=== PATIENT | male | born 1970 | race Caucasian/White ===

== ENCOUNTER 2017-06-27 06:13 | Day surgery (SDC) | payer OTHER ==
--- NOTE | 2017-06-22 16:03 | HP ---
CC: Dr. Robinson Torres * PREOPERATIVE HISTORY AND PHYSICAL: DATE OF PREOPERATIVE HISTORY AND PHYSICAL EXAMINATION: 06/22/17 DATE OF SURGERY: This patient is scheduled for same-day surgery admission by Dr. Aleman on 06/27/17. ATTENDING SURGEON: Dr. Sonny Aleman * (dictated by Amanda An NP). CHIEF COMPLAINT: Bilateral groin hernias. HISTORY OF PRESENT ILLNESS: The patient is a 47-year-old male referred to Dr. Aleman by Dr. Torres for evaluation of a left inguinal hernia and a possible right inguinal hernia. The patient has noted over the past 6 months, a bulge in the left groin. He had lost about 20 pounds intentionally that seemed to be more prominent. He does quite a bit of running and exercise and has noted some discomfort. He has not always been able to reduce the left groin bulge. He denies any pain down in the testicle. He denies any urinary complaints or any signs or symptoms to suggest incarceration or strangulation of the hernia. When Dr. Aleman examined the patient, he noticed bilateral inguinal hernias; and therefore, discussed the findings with the patient and after discussion of the various surgical techniques for repair, the patient has opted for laparoscopic bilateral inguinal hernia repair with mesh as a same-day surgery procedure at [facility]. Dr. Aleman discussed the nature of the surgical procedure, the relevant risks and benefits and today I reviewed the expected postoperative care and recovery. The patient has had chance to ask questions and stated that he understands the information and is satisfied with the answers given to his questions. He will sign surgical consent on the day of surgery. PAST MEDICAL HISTORY: Generally healthy. No acute or chronic conditions. PAST SURGICAL HISTORY: Open right inguinal hernia as , vasectomy, wisdom teeth extraction. MEDICATIONS: [id number] allergy medication 10 mg daily, multivitamin daily. ALLERGIES: No known drug allergies. FAMILY HISTORY: No known anesthesia complications, bleeding tendencies, or clotting disorders. 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 He is never been a smoker. He occasionally consumes alcohol and denies the use of other substances and exercises regularly. REVIEW OF SYSTEMS: Constitutional: No fevers, chills, excessive fatigue or unintentional weight loss. Endocrine: No diabetes or thyroid disease. Hematologic: No easy bruising or bleeding. No previous blood transfusions. Respiratory: No cough. No dyspnea on exertion. Cardiovascular: No anginal chest pain or palpitations. Gastrointestinal: No nausea, vomiting, diarrhea, or chronic constipation. Genitourinary: No dysuria. Musculoskeletal: No joint or back pain. Neurologic: No headache or blurred vision. General: No history of deep venous thrombosis or pulmonary embolism. No history of anesthesia complications and the patient has never received a blood transfusion. PHYSICAL EXAMINATION GENERAL SURVEY: The patient is a 47-year-old male, well-developed, well- nourished, in no acute distress. VITAL SIGNS: Height 68 inches, weight 170 pounds, body mass index 25.8. Blood pressure 92/68, pulse 76 and regular, respiratory rate 16, temperature 97.3 tympanic. HEENT: Benign. NECK: Supple. No cervical lymphadenopathy. LUNGS: Breath sounds bilaterally clear and equal. HEART: Regular rate and rhythm. No murmurs or rubs appreciated. ABDOMEN: Active bowel sounds, soft, nontender and nondistended. No obvious masses or organomegaly. No umbilical hernia; faint right groin incision. Inguinal exam as done by Dr. Aleman revealed an obvious left inguinal bulge with a reducible nontender left inguinal hernia; right inguinal hernia of moderate size, which is reducible and mildly tender. Scrotum, no testicular mass is noted. No scrotal enlargement bilaterally. BACK: No CVA tenderness. EXTREMITIES: Warm without edema or skin ulceration. RECTAL EXAM: Deferred. NEUROLOGIC: Alert and oriented x3. Steady gait. SKIN: Warm, dry, intact. IMPRESSION: Bilateral inguinal hernias. PLAN: Same-day surgery admission to Dr. Aleman's service on 06/27/17 , for a laparoscopic bilateral inguinal hernia repair with mesh. BENITO AN, AVIATION MAINTENANCE INSTRUCTOR [id number]/[facility] #: [id number] JACQUES
[~2017-06-27 06:13] MED LIST: Buffered Lidocaine 0.9% SYRIN* 5 ML/SYR SYRINGE INTRADERM ONE; Famotidine IV* 10 MG/ML 2 ML (20 mg) IV ONE
[2017-06-27] MEDS ORDERED: ceFAZolin 2 GM PREMIX (*) 50 ML IVPB ONE (06:31)
[2017-06-27] MEDS ORDERED: Buffered Lidocaine 0.9% SYRIN* 5 ML/SYR SYRINGE ONE (06:31)
[2017-06-27] MEDS ORDERED: Famotidine IV* 10 MG/ML 2 ML (20 mg) ONE (06:31)
[2017-06-27] MEDS ORDERED: Bupivacaine 0.25% SDV* 30 ML ONE ×2 (07:14→10:24)
[2017-06-27] MEDS ORDERED: Midazolam* 1 MG/ML 5 ML VIAL (5 MG) ONE (07:43)
[2017-06-27] MEDS ORDERED: fentaNYL* 50 MCG/ML 2 ML VIAL (100 MCG VIAL) ONE ×2 (07:43→08:41)
[2017-06-27] MEDS ORDERED: Rocuronium* 10 MG/ML VIAL ONE (07:45)
[2017-06-27] MEDS ORDERED: Ketorolac INJ* 30 MG/ML 1 ML VIAL ONE (08:15)
[2017-06-27] MEDS ORDERED: Ondansetron INJ* 2 MG/ML VIAL ONE (08:15)
[2017-06-27] MEDS ORDERED: Lidocaine 2% PF * 5 ML VIAL ONE (08:15)
[2017-06-27] MEDS ORDERED: Dexamethasone IV* 4 MG/ML 1 ML (4 MG) ONE (08:15)
[2017-06-27] MEDS ORDERED: Propofol* 10 MG/ML 20 ML BTL IV PUSH ONE (08:15)
[2017-06-27] MEDS ORDERED: Succinylcholine* 20 MG/ML 10 ML VIAL ONE (08:15)
[2017-06-27] MEDS ORDERED: Acetaminophen TAB* 325 MG PO PRN (09:15)
[2017-06-27] MEDS ORDERED: DiMENhydriNATE IV* 50 MG/ML VIAL IV PUSH PRN (09:15)
[2017-06-27] MEDS ORDERED: oxyCODONE TAB* 5 MG TAB PO PRN (09:15)
[2017-06-27] MEDS ORDERED: oxyCODONE/Acetamin 5/325 MG* TAB PO PRN (10:51)
[2017-06-27] MEDS ORDERED: HYDROmorphone* 1 MG/ML 1 ML SYR ONE (11:12)
[2017-06-27] MEDS: HYDROmorphone* 1 MG/ML 1 ML SYR IV PRN ×3 (11:13→11:27)
[2017-06-27] MEDS ORDERED: Acetaminophen TAB* 325 MG ONE (12:15)
[2017-06-27] MEDS ORDERED: oxyCODONE TAB* 5 MG TAB ONE (12:53)
[2017-06-27 16:31] VITALS: BP 118/77
--- NOTE | 2017-06-28 13:39 | OP ---
DATE OF OPERATION: 06/27/17 [facility] DATE OF : 66 SURGEON: Sonny Aleman MD LENS ENGRAVER: CADY Pugh ANESTHESIOLOGIST: Dr. Kiersten Ordonez. ANESTHESIA: General with local. PRE-OP DIAGNOSIS: Bilateral inguinal hernias. POST-OP DIAGNOSIS: Bilateral direct inguinal hernias. OPERATIVE PROCEDURE: Open repair of bilateral direct inguinal hernias with mesh after attempted laparoscopic repair. ESTIMATED BLOOD LOSS: Minimal. SPECIMENS: None. COMPLICATIONS: None. WOUND CLASSIFICATIONS: 1. FINDINGS: The patient has had a previous open right inguinal hernia repair. There was a large amount of adhesions between the peritoneum and the anterior abdominal wall and when developing the preperitoneal space on the right, there was a large rent made in the peritoneum itself, which was not able to be closed adequately and I was not able to maintain the insufflation. The decision was made to proceed with open bilateral inguinal hernia repairs. DESCRIPTION OF PROCEDURE: Written informed consent was obtained. Preoperative antibiotics were administered and both the left and right groins were marked indelible ink. The patient was taken to the operating room, placed in the supine position. The sequential compression devices and warming blanket were applied. General anesthesia was administered and a Woods catheter was inserted. The abdomen and both groins were prepped and draped in the usual sterile fashion. A small transverse incision was made just below and to the right of the umbilicus, carried down to the anterior rectus fascia, which was divided transversely and the muscle was retracted laterally. The space just anterior to the posterior rectus sheath was developed with a Nadya clamp as well as digitally and the Spacemaker balloon was inserted down the midline till it opposed the pubic bone. This was then inflated with about 13 to 14 squeezes of the hand balloon and this was removed. A 12 mm blunt port was inserted into the preperitoneal space and this space was insufflated to 12 mmHg. I was able to identify the pubic tubercle and conjoint tendon on the right. There was a direct space hernia on the right side; however, here it became evident that in insufflating and developing the space, there apparently was adhesive disease from the previous open repair and a rather large rent was made in the peritoneum and at point we had difficulty maintaining insufflation and the rent appeared to be much too large to close adequately to complete the laparoscopic, totally extraperitoneal approach. At this point, I made a decision to proceed with bilateral open repairs and the ports were removed and the extraperitoneal space was desufflated. Initially the left side was addressed and an oblique incision was made several fingerbreadths above the inguinal crease, this was carried down through the Deion's fascia and the external oblique aponeurosis was identified and opened in the directions of its fibers. The underlying spermatic cord was encircled with a 0.25-inch Chi drain at the pubic tubercle. It was apparent that there was a rather large direct space hernia here. Careful evaluation of the cord structures showed no evidence of indirect inguinal hernia sac. We were able to imbricate the direct space hernia sac and a Covidien Pro-Associate Professor Of [employer] mesh was then placed and sutured to the pubic tubercle medially, the conjoint tendon superiorly and the musculature laterally. It was sutured to the inguinal ligament inferiorly with a running 0-Polysorb suture. This mesh set nicely without wrinkling and covered both the direct and indirect spaces nicely. Hemostasis was assured. Additional Marcaine was infiltrated for postoperative pain management. External oblique aponeurosis was closed with a running 3-0 Polysorb suture. The Deion's fascia was closed with interrupted 3-0 Polysorb suture. The skin was approximated with subcuticular 4-0 Polysorb suture and Steri-Strips and sterile dressings were applied. The right side was addressed. An oblique incision was made and carried down through the Deion's fascia. Next, oblique aponeurosis was identified and opened in the direction of its fibers. Likewise, the spermatic cord and its contents were encircled with 0.25-inch Hayward drain at the pubic tubercle and from this underlying floor, which once again showed a moderate-to- large size direct space hernia. Careful evaluation of the cord at the internal ring revealed no indirect inguinal hernia sac. I imbricated the hernia sac and the direct space in preparation for mesh placement. The ProGrip Covidien mesh was then sutured to the pubic tubercle medially, the conjoint tendon superiorly and the musculature laterally with interrupted 0- Polysorb suture. It was secured to the inguinal ligament inferiorly with a running 0-Polysorb suture. The mesh reconstructed the abdominal wall nicely as well as the internal ring and covered the direct space well without wrinkling or tension. Hemostasis was assured. The external oblique aponeurosis was closed with a running 3-0 Polysorb suture. The Deion's fascia was closed with interrupted 3- 0 Polysorb suture. The skin was approximated with a running subcuticular 4-0 Polysorb suture. Steri-Strips and sterile dressings were applied. Additional Marcaine was infiltrated in both groin sites as well as at the port sites in the upper midline. The anterior rectus fascia at the umbilical incision was closed with interrupted 0 Polysorb suture. The three port sites were closed with running 4-0 Polysorb suture. Steri-Strips and sterile dressings were applied. The patient tolerated the procedure well and was taken to the recovery room in stable condition. [id number]/[facility] #: [id number] MTDD
== END 2017-06-27 16:31 | disposition home or self-care (01) ==
LOC: OR 06:13
PROVIDERS: ATTEND Surgery
DX: K40.91 Unilateral inguinal hernia, without obstruction or gangrene, recurrent (principal); K40.90 Unilateral inguinal hernia, without obstruction or gangrene, not specified as recurrent; Z53.31 Laparoscopic surgical procedure converted to open procedure
CPT/HCPCS: A9270-GY; C1781; J0330; J0690; J1100; J1170; J1885; J2250; J2405; J2704; J3010

== ENCOUNTER 2018-07-09 12:14 | Emergency (ER) | payer OTHER ==
[2018-07-09] MEDS ORDERED: NS 0.9% 1000 ML* 1,000 ML IV ONE (14:41)
--- NOTE | 2018-07-09 14:43 | ED ---
Abdominal Pain/Male - HPI Summary HPI Summary: A 48 y/o male presents to ED c/o lower abdominal pain and bloating since Tuesday reaching 2/10 in severity. As per triage, "Lower abdominal pain since Tuesday. LRQ sharp pains. Last bm was tuesday evening with nausea. Worse with palpation". According to the patient, initially on Tuesday AM he had a bowl of cereal (brand name) which led to bloating. After that, he at least had a half dozen soft stool BM. From that point on, he proceeded to exhibit a steady pain that became a sharp pain intermittently. He noted that he had very small meals since the onset of pain (Breakfast Tuesday AM, Breakfast Tuesday AM and Tuesday night dinner). He noted that he was nauseous Tuesday, but not currently. Additionally he denies any vomiting or fever, but is diaphoretic and has chills. He has never experienced this before. PMHx of double inguinal hernia (both sides) surgery done at [facility] (and wisdom teeth), denies cholecystectomy or appendectomy. FHx of DM, HTN and cancer. SHx of no smoking, occasional ETOH, no recreational drugs. - History of Current Complaint Chief Complaint: EDAbdPain Stated Complaint: ABD PAIN Time Seen by Provider: 07/09/18 14:35 Hx Obtained From: Patient Onset/Duration: Sudden Onset, Lasting Days, Still Present Timing: Constant Severity Initially: Mild Severity Currently: Mild Pain Intensity: 2 Pain Scale Used: 0-10 Numeric Location: Other - Lower abdominal pain on both sides Radiates: No Character: Sharp Aggravating Factor(s): Nothing Alleviating Factor(s): Nothing Associated Signs And Symptoms: Positive: Decreased Appetite, Nausea - Subsided, Diarrhea - Soft stool. Negative: Fever, Vomiting - Allergies/Home Medications Allergies/Adverse Reactions: Allergies Allergy/AdvReac Type Severity Reaction Status Date / Time No Known Allergies Allergy Verified 07/09/18 12:17 PMH/Surg Hx/FS Hx/Imm Hx Endocrine/Hematology History: Denies: Hx Diabetes, Hx Thyroid Disease Cardiovascular History: Denies: Hx Hypercholesterolemia, Hx Hypertension, Hx Peripheral Vascular Disease GI History: Reports: Other GI Disorders - BILATERAL INGUINAL HERNIAS Musculoskeletal History: Denies: Hx Arthritis, Hx Bursitis, Hx Osteoporosis, Hx Tendonitis, Other Musculoskeletal History Sensory History: Denies: Hx Cataracts, Hx Contacts or Glasses - BOTH, WILL WEAR GLASSES DOS, Hx Glaucoma, Hx Hearing Aid Opthamlomology History: Denies: Hx Cataracts, Hx Contacts or Glasses - BOTH, WILL WEAR GLASSES DOS, Hx Glaucoma Neurological History: Reports: Hx Migraine - AT AGE 12-13, [place] SINCE Denies: Hx Headaches, Hx Seizures, Hx Transient Ischemic Attacks (TIA) Psychiatric History: Denies: Hx Anxiety, Hx Depression - Cancer History Hx Chemotherapy: No - Surgical History Surgery Procedure, Year, and Place: INGUINAL HERNIA REPAIR [facility]. WISDOM TEETH [facility] Hx Anesthesia Reactions: No Infectious Disease History: No Infectious Disease History: Denies: History Other Infectious Disease, Traveled Outside the [place] in Last 30 Days - Family History Known Family History: Positive: Hypertension, Diabetes, Other - Cancer - Social History Alcohol Use: Weekly Alcohol Amount: 1 DRINK/WEEK Hx Substance Use: No Substance Use Type: Reports: None Hx Tobacco Use: No Smoking Status (MU): Never Smoked Tobacco Have You Smoked in the Last Year: No Review of Systems Positive: Chills, Skin Diaphoresis. Negative: Fever Positive: Abdominal Pain, Diarrhea, Nausea - RESOLVED. Negative: Vomiting All Other Systems Reviewed And Are Negative: Yes Physical Exam - Summary Physical Exam Summary: VITAL SIGNS: Reviewed. GENERAL: Patient is a well-developed and nourished male who is lying comfortable in the stretcher. Patient is not in any acute respiratory distress. HEAD AND FACE: Normocephalic and atraumatic. EYES: PERRLA, EOMI x 2, No injected conjunctiva. EARS: Hearing grossly intact. Ear canals and tympanic membranes are WNL. MOUTH: Oropharynx within normal limits. NECK: Supple, trachea is midline, no adenopathy, no JVD. CHEST: Symmetric, no tenderness at palpation LUNGS: Clear to auscultation bilaterally. No wheezing or crackles. CVS: RRR, S1 and S2 present, no murmurs or gallops appreciated. ABDOMEN: Soft, lower abdominal tenderness, more so on right then left. No signs of distention. Positive bowel sounds. No rebound no guarding, and no masses palpated. No abdominal bruit or pulsations. EXTREMITIES: FROM in all major joints, no edema, no cyanosis or clubbing. NEURO: Alert and oriented x 3. No acute neurological deficits. Speech is normal. SKIN: Dry and warm Triage Information Reviewed: Yes Vital Signs On Initial Exam: Initial Vitals Temp Pulse Resp BP Pulse Ox 97.3 F 70 16 114/73 100 07/09/18 12:17 07/09/18 12:17 07/09/18 12:17 07/09/18 12:17 07/09/18 12:17 Vital Signs Reviewed: Yes Diagnostics - Vital Signs Vital Signs Temp Pulse Resp BP Pulse Ox 07/09/18 14:15 97.3 F 62 14 117/78 100 07/09/18 12:17 97.3 F 70 16 114/73 100 - Laboratory Result Diagrams: 07/09/18 15:14 07/09/18 15:14 Lab Statement: Any lab studies that have been ordered have been reviewed, and results considered in the medical decision making process. - CT CT A/P CT Interpretation Completed By: Radiologist - 1. CT findings are consistent with sigmoid colitis. There is no evidence of macro perforation or drainable pericolonic fluid collection. 2. Homogenous hypoattenuation of the liver could BE due to hepatic steatosis. ED PHYSICIAN REVIEWED THIS RADIOLOGY REPORT. - EKG 1445 Cardiac Rate: Bradycardia - 58 BPM EKG Rhythm: Sinus Bradycardia EKG Interpretation: NO ST ELEVATIONS Re-Evaluation - Re-Evaluation First Eval Re-Evaluation Time: 18:23 Comment: DISCUSSED PLAN AND DISCHARGE WITH PATIENT. Abdominal Pain Fem Course/Dx - Course Assessment/Plan: This patient is a 48-year-old male who presents to the emergency department with a chief complaint of having lower abdominal pain. The pain started last Tuesday and has been worsening since then. Denies any nausea, vomiting, diarrhea and constipation. Patient reports no history of similar pain in the past. He has no past medical history, however, he had a bilateral inguinal hernia approximately one year ago. EKG shows a sinus bradycardia at [address] elevations. Blood work without any significant abnormality except 4 CRP of 211. IMPRESSION: 1. CT findings are consistent with sigmoid colitis. There is no evidence of macro. perforation or drainable pericolonic fluid collection. 2. Homogenous hypoattenuation of the liver could BE due to hepatic steatosis. In the ED course the patient was hydrated. He didn't require any pain medication. Since the patient does have an white blood cell count, doesn't have any diarrhea I believe that the patient would benefit of prednisone and no antibiotics. I discussed all the findings and test results with the patient and the patient's and the need to follow- up with commercial installer. The patient will be given a prescription for penicillin for 4 days. Patient is hemodynamically stable alert and oriented 3. - Diagnoses Differential Diagnosis/HQI/PQRI: Appendicitis, Bowel Obstruction, Gall Bladder Disease, Renal Colic, Ureteral Stone, Urinary Tract Infection Provider Diagnoses: Colitis Discharge - Sign-Out/Discharge Documenting (check all that apply): Patient Departure - DISCHARGE - Discharge Plan Condition: Stable Disposition: HOME Prescriptions: predniSONE [Prednisone 20 MG TAB] 40 mg PO DAILY #8 tablet Patient Education Materials: Colitis (ED) Referrals: Robinson Torres MD [Primary Care Provider] - Mohit Segundo MD [Medical Doctor] - 3 Days Additional Instructions: FOLLOW UP WITH GASTROENTEROLOGY IN 2-3 DAYS. RETURN TO ED FOR ANY NEW OR WORSENING SYMPTOMS. - Attestation Statements Document Initiated by Scribe: Yes Documenting Scribe: Mike Flor Provider For Whom Scribe is Documenting (Include Credential): Albert Matt MD Scribe Attestation: Mike Arzola, scribed for Albert Matt MD on 07/09/18 at 1848.
[2018-07-09 15:24] LABS: ABS Basophils 0 10^3/ul (0-0.2); ABS Eosinophils 0.1 10^3/ul (0-0.6); ABS Lymphocytes 0.9 10^3/ul (1.0-4.8); ABS Monocytes 0.6 10^3/ul (0-0.8); ABS Neutrophils 6.8 10^3/ul (1.5-7.7); ABS Nucleated RBC 0 10^3/ul; Eosinophil % 0.7 % (0-6); Hematocrit 43 % (42-52); Hemoglobin 14.7 g/dl (14.0-18.0); Lymphocyte % 11.1 % (25-47); Mean Corpuscular HGB Conc 34 g/dl (31-36); Mean Corpuscular Hemoglobin 28 pg (27-31); Mean Corpuscular Volume 83 fL (80-94); Mean Platelet Volume 10.4 um3 (7.4-10.4); Nucleated Red Blood Cells % 0.1; Platelet Count 112 10^3/ul (150-450); Red Blood Count 5.21 10^6/ul (4.00-5.40); Red Cell Distribution Width 13 % (10.5-15); White Blood Count 8.5 10^3/ul (3.5-10.8)
[2018-07-09] MEDS ORDERED: Iohexol 300* (CONTRAST) 10 ML SDV IV ONE (15:54)
--- NOTE | 2018-07-09 18:16 | RAD ---
CLINICAL HISTORY: Lower abdominal pain. Relevant surgical history includes inguinal hernia repair. COMPARISON: None TECHNIQUE: Contrast enhanced CT examination of the abdomen and pelvis from the lung bases through the initial tuberosities. The patient received 109 mL Omnipaque 300 intravenously prior to imaging.The patient received oral contrast as well prior to imaging. FINDINGS: VISUALIZED LUNG BASES: The visualized lung bases are grossly clear. There is no pleural effusion. ABDOMEN AND PELVIS: The liver is homogenously hypodense relative to the spleen. There are no focal masses or surface irregularity. The spleen, pancreas and adrenal glands are grossly normal in appearance. The gallbladder is normal. The kidneys are normal in appearance without focal mass, calcification or signs of hydronephrosis. Neural contrast has progressed as far as the rectum. The small and large bowel are not distended. The patient's normal appendix is identified in the right lower quadrant with contrast in the lumen measuring 5 mm in diameter. Beginning at the proximal portion of the sigmoid colon and extending to the rectum there is a long segment of bowel exhibiting wall thickening measuring at least 5 mm in diameter. There is mild infiltration of the peritoneal fat surrounding the sigmoid colon. There is no gross free air or drainable fluid collection. There is no gross retroperitoneal or mesenteric lymphadenopathy. The pelvic viscera is normal in appearance. The abdominal aorta and iliac arteries are normal in course and diameter. Degenerative changes include multilevel loss of intervertebral disc height involving the lower thoracic and lumbar spine.There are no sinister bone lesions. IMPRESSION: 1. CT findings are consistent with sigmoid colitis. There is no evidence of macro perforation or drainable pericolonic fluid collection. 2. Homogenous hypoattenuation of the liver could BE due to hepatic steatosis.
[2018-07-09] MEDS ORDERED: predniSONE TAB* 20 MG PO ONE (18:19)
[2018-07-09 18:41] VITALS: BP 127/81
[2018-07-09 19:11] LABS: Urine Appearance Clear; Urine Blood Negative (Negative); Urine Color Yellow; Urine Ketones Negative (Negative); Urine Protein 1+(30 mg/dL) (Negative); Urine Specific Gravity 1.024 (1.010-1.030); Urine Urobilinogen Negative (Negative)
== END 2018-07-09 18:56 | disposition home or self-care (01) ==
LOC: ED 12:14
DX: K52.9 Noninfective gastroenteritis and colitis, unspecified (principal); R10.30 Lower abdominal pain, unspecified; R19.7 Diarrhea, unspecified; R11.0 Nausea
CPT/HCPCS: 36415; 74177; 80053; 81003; 81015; 82550; 83605; 83690; 83735; 83880; 85025; 86140; 93005; 96360; 99283; J7512; Q9967